=== PATIENT | male | born 2000 | race Caucasian/White ===

== ENCOUNTER 2025-09-29 01:15 | Emergency (ER) | payer OTHER, SELFPAY ==
[2025-09-29] VITALS (7 sets, daily range): BP systolic 137–154; BP diastolic 87–100; PULSE 77–87; TEMP 36.7; O2SAT 96–98; BMI 28.8
--- NOTE | 2025-09-29 01:25 | ECG_ITS ---
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 Measurements Intervals [place] Rate: 89 P: 38 WA: 134 QRS: 33 QRSD: 88 T: 8 QT: 344 QTc: 390 Interpretive Statements 1100 Sinus rhythm 9110 normal ECG Compared to ECG 12/11/2021 18:28:47 Sinus tachycardia no longer present Electronically Signed On 09-29-2025 14:15:33 EST by GAURAV DAVIS M.D.
--- NOTE | 2025-09-29 01:52 | ED_ITS ---
HPI - Chest Pain General Chief Complaint: Chest Pain Stated Complaint: CHEST PAINS Time Seen by Provider: 09/29/25 01:44 Source: patient Mode of arrival: walk-in Limitations: no limitations History of Present Illness HPI narrative: chest pain since yesterday. burning sensation substernal. occ belching. No dyspnea or fever Related Data Home Medications ?Medication ?Instructions ?Recorded ?Confirmed No Known Home Medications 09/29/2509/20 Allergies Allergy/AdvReac Type Severity Reaction Status Date / Time No Known Drug Allergies Allergy Verified 09/29/25 01:23 Review of Systems ROS Status of ROS 10 or more systems reviewed and unremark able except as noted in history and below PFSH PFSH Social History Little interest or pleasure in doing things: not at all Feeling down, depressed, or hopeless: not at all Exam Constitutional Vital Signs, click to edit/add: Last Vital Signs Temp 98.0 F 09/29/25 01:20 Pulse 77 09/29/25 01:50 Resp 19 09/29/25 01:50 BP 137/87 09/29/25 01:27 Pulse Ox 96 09/29/25 01:50 O2 Del Method Room Air 09/29/25 01:49 Common normals: no apparent distress, average body habitus, oriented x3, no limitations, healthy appearing, alert and well nourished [facility] Common normals: normocephalic and head/scalp atraumatic Eye Common normals: EOMs intact bilaterally and conjunctivae normal Respiratory Common normals: normal respiratory effort, no retractions, no use of accessory muscles and clear to auscultation bilaterally Cardio Common normals: regular rate, regular rhythm, S1 normal heart sound and S2 normal heart sound GI Common normals: Normal to inspection, nondistended, normoactive bowel sounds present, soft to palpation and non-tender Extremity Common normals: normal to inspection and full ROM Neuro Common normals: oriented x3, CN's II-XII intact bilaterally, moves all extremities and no focal motor deficits Course Vital Signs Vital signs: Vital Signs Temperature 98.0 F 09/29/25 01:20 Pulse Rate 87 09/29/25 01:20 Respiratory Rate 18 09/29/25 01:20 Blood Pressure 154/100 H 09/29/25 01:20 Pulse Oximetry 98 09/29/25 01:20 Oxygen Delivery Method Room Air 09/29/25 01:20 Temperature 98.0 F 09/29/25 01:20 Pulse Rate 77 09/29/25 01:50 Respiratory Rate 19 09/29/25 01:50 Blood Pressure 137/87 09/29/25 01:27 Pulse Oximetry 96 09/29/25 01:50 Oxygen Delivery Method Room Air 09/29/25 01:49 MDM - Chest Pain MDM Narrative Medical decision making narrative: presents with continuous discomfort substernal in his chest for past 24 hours or longer. Described as burning and belching. Neg exam . Normal EKG, normal cxray and troponin. Patient informed of working diagnosis of GERD. Given dose or protonix and discharged home5 Lab Data Labs: Lab Results 09/29/25 Range/Units 01:24 WBC 6.6 (4.0-11.0) 10^3/uL RBC 5.62 (4.70-6.10) 10^6/uL Hgb 15.7 (14.0-18.0) g/dL Hct 47.8 (42.0-54.0) % MCV 85.1 (80.0-94.0) fL MCH 27.9 (25.9-34.0) pg MCHC 32.8 (29.9-35.2) g/dL RDW 12.3 (11.0-15.0) % Plt Count 326 (150-450) 10^3/uL MPV 9.9 (9.5-13.5) fL Neut % (Auto) 41.2 L (43.0-75.0) % Lymph % (Auto) 43.4 (20.5-60.0) % [place] % (Auto) 10.8 (1.7-12.0) % Eos % (Auto) 3.2 (0.9-7.0) % Baso % (Auto) 1.2 (0.2-2.0) % Neut # (Auto) 2.7 (1.4-6.5) 10^3/uL Lymph # (Auto) 2.9 (1.2-3.8) 10^3/uL [place] # (Auto) 0.7 (0.3-0.8) 10^3/uL Eos # (Auto) 0.2 (0.0-0.7) 10^3/uL Baso # (Auto) 0.1 (0.0-0.1) 10^3/uL Abs Immat Gran (auto) 0.01 (0.00-0.03) 10^3/uL Imm/Tot Granulo (auto) 0.2 (0.0-0.5) % Sodium 139 (136-145) mmol/L Potassium 3.2 L (3.5-5.1) mmol/L Chloride 104 (98-107) mmol/L Carbon Dioxide 29.7 (21.0-32.0) mmol/L Anion Gap 8.5 BUN 9.0 (7.0-18.0) mg/dL Creatinine 0.98 (0.70-1.30) mg/dL Est GFR ( Amer) >60 (>=60 mL/min/1.73m^2) Est GFR (Non-Af Amer) >60 (>=60 mL/min/1.73m^2) BUN/Creatinine Ratio 9.2 Glucose 119 H (74-106) mg/dL Calcium 9.3 (8.5-10.1) mg/dL Troponin I High Sens <4.0 L (4.0-76.1) pg/mL Discharge Plan Discharge Chief Complaint: Chest Pain Clinical Impression: Atypical chest pain, GERD (gastroesophageal reflux disease) Patient Disposition: Home, Self-Care Prescriptions / Home Meds: No Action No Known Home Medications Print Language: Greenlandic Instructions: GERD (Gastroesophageal Reflux Disease) (ED) Referrals: MARC OA NEGRO [Primary Care Provider, [employer] MICROBIOLOGIST] - 1 week
--- NOTE | 2025-09-29 01:52 | XR_ITS ---
[place] [id number] Patient Name: NAEEM MANCILLA MRN: [id number] date: 2000 Sex: M Assigned Patient Location: ER Current Patient Location: ED.MAIN Accession/Order Number: [id number] Exam Date: 09/29/2025 01:55 Report Date: 09/29/2025 08:37 At the request of: YONNY TAYLOR MD Procedure: XR chest 1V XR chest 1V 09/29/2025 2:04 AM SIGNS AND SYMPTOMS: ^CHEST PAIN PROTOCOL: Frontal radiograph of the chest COMPARISON: 12/11/2021 FINDINGS: The trachea is midline. The heart and mediastinal structures are within normal limits. The lung parenchyma is clear. The bony thorax is intact. XR/XR chest 1V IMPRESSION: No acute cardiopulmonary pathology. Impression dictated by: Jose Harmon M.D. 09/29/2025 8:37 AM Dictation Location: [place] [address] Electronically authenticated by: [id number] Y Date: 09/29/2025 08:37
[2025-09-29 01:56] LABS: Hematocrit 47.8 % (42.0-54.0); Hemoglobin 15.7 g/dL (14.0-18.0); Immature Granulocytes Abs Auto 0.01 10^3/uL (0.00-0.03); Immature Granulocytes Pct Auto 0.2 % (0.0-0.5); Lymphocytes Absolute Auto 2.9 10^3/uL (1.2-3.8); Mean Corpuscular HGB Conc 32.8 g/dL (29.9-35.2); Mean Corpuscular Hemoglobin 27.9 pg (25.9-34.0); Mean Corpuscular Volume 85.1 fL (80.0-94.0); Platelet Count 326 10^3/uL (150-450); Red Blood Count 5.62 10^6/uL (4.70-6.10); White Blood Count 6.6 10^3/uL (4.0-11.0)
[2025-09-29 02:14] LABS: Anion Gap 8.5; Blood Urea Nitrogen 9.0 mg/dL (7.0-18.0); Calcium 9.3 mg/dL (8.5-10.1); Carbon Dioxide 29.7 mmol/L (21.0-32.0); Chloride 104 mmol/L (98-107); Estimated GFR (African America >60 (>=60 mL/min/1.73m^2); Estimated GFR (Non-African Ame >60 (>=60 mL/min/1.73m^2); Glucose 119 mg/dL (74-106); Potassium 3.2 mmol/L (3.5-5.1); Sodium 139 mmol/L (136-145)
[2025-09-29] MEDS: PANTOPRAZOLE SODIUM 40 MG TABLET.DR PO (03:01)
== END 2025-09-29 03:06 | disposition home or self-care (01) ==
PROVIDERS: Emergency Provider Internal Medicine; PCP Nurse Practitioner
DX: R07.89 Other chest pain (principal); K21.9 Gastro-esophageal reflux disease without esophagitis
CPT/HCPCS: 36415; 71045; 80048; 84484; 85025; 93005; 99284